=== PATIENT | male | born 1980 | race African-American/Black ===

== ENCOUNTER 2020-09-26 10:04 | Emergency (ER) | payer OTHER, BC ==
[~2020-09-26] VITALS: Ht 185.4 cm; Wt 104.9 kg
[~2020-09-26 10:04] MED LIST: CEPHALEXIN500 MG PO; IBUPROFEN800 MG PO; NORCO 5-325 TA1 EACH PO
[2020-09-26] MEDS ORDERED: HYDROCODON-ACE1 EA10 PO (11:06)
[2020-09-26] MEDS ORDERED: CEPHALEXIN500 M1 PO (11:06)
== END 2020-09-26 11:35 | disposition home or self-care (01) ==
LOC: ED 10:04
DX: S62.511B Displaced fracture of proximal phalanx of right thumb, initial encounter for open fracture (principal); W22.8XXA Striking against or struck by other objects, initial encounter
CPT/HCPCS: 73130; 99283-25

== ENCOUNTER 2020-10-06 11:50 | Day surgery (SDC) | payer OTHER, BC ==
[~2020-10-06] VITALS: Ht 185.4 cm; Wt 105.0 kg
--- NOTE | ~2020-10-06 | OR ---
[facility] [address] [place], [place] [address] Draft DATE OF OPERATION: 10/06/2020 SURGEON: Je Coon MD PREOPERATIVE DIAGNOSIS: P1 fracture, right thumb. POSTOPERATIVE DIAGNOSES: P1 fracture, right thumb, closed reduction, percutaneous pinning of right thumb. BODY WORK AUTO TRIMMER: Louisa Jones PA-C. ANESTHESIA: MAC. BLOOD LOSS: None. IMPLANTS: Two 1.25 K-wires. BRIEF HISTORY: Logan is a 40-year-old gentleman who injured his thumb at work. He fractured when he got caught between two metal racks. It was displaced, angulated. Risks and benefits of operative treatment were discussed with him and he elected to proceed. DESCRIPTION OF PROCEDURE: Once consent was obtained, he was taken to the operating room. After adequate anesthesia he was placed on the bed. The arm was prepped and draped in a standard sterile fashion. Closed reduction was attempted, however, we were unable to do that. We then percutaneously introduced a K-wire and using this as a shoe horn. We were able to get the distal portion of the proximal phalanx aligned. Two 1.25 mm K-wires were then passed from distal to proximal engaging the body of the phalanx. It was quite stable. Radiograph showed anatomic reduction. Two K-wires were then fixed with Jurgan balls and cut off. The wound was then dressed with sterile gauze, sterile cast padding, and a thumb spica splint. He tolerated the procedure well. All sponge, needle, and instrument counts were correct. PATIENT NAME: CRYSTAL TINOCO OPERATIVE REPORT DATE OF : 76 REPORT #: [id number] PHYSICIAN: JE COON MD PCP: NO PRIMARY CARE PHYSICIAN REPORT IS CONFIDENTIAL AND NOT TO BE RELEASED WITHOUT AUTHORIZATION [address] [address] Draft Je Coon MD BA/DONNIE /[id number] Copies: ~ PATIENT NAME: CRYSTAL TINOCO OPERATIVE REPORT DATE OF : 76 REPORT #: [id number] PHYSICIAN: JE COON MD PCP: NO PRIMARY CARE PHYSICIAN REPORT IS CONFIDENTIAL AND NOT TO BE RELEASED WITHOUT AUTHORIZATION
[~2020-10-06 11:50] MED LIST changes: +CEPHALEXIN500 M1 PO; +HYDROCODON-ACE1 EA10 PO
[2020-10-06] MEDS ORDERED: MULTI-VITAMIN1 EACH PO (12:13)
[2020-10-06] MEDS ORDERED: HYDROCODON-ACE1 EA10 PO (14:25)
--- NOTE | 2020-10-06 15:18 | NUR ---
10/06/20 1518 Megan Baird 1418 PT ARRIVED IN PACU SLEEPY WITH NO C/O'S. RIGHT ARM ELEVATED ON PILLOWS. 1445 PT AWAKE WANTING TO GO HOME. SITTING AT BEDSIDE GETTING DRESSED. 1450 UP TO BR WITH ONE PERSON ASSIST. VOIDED. BACK AT BEDSIDE GETTING DC INSTRUCTIONS. ALL QUESTIONS ANSWERED. LEFT VIA W/C WITH ARM IN SLING AT 1500.
== END 2020-10-06 15:00 | disposition home or self-care (01) ==
LOC: DS 11:50 → OPS 11:50 → DS 14:30 → OPS 15:00
PROVIDERS: ATTEND Specialist
PROC: 0PSR34Z Reposition Right Thumb Phalanx with Internal Fixation Device, Percutaneous Approach (ICD-10-PCS; principal; 2020-10-06 14:30)
DX: S62.511A Displaced fracture of proximal phalanx of right thumb, initial encounter for closed fracture (principal); W23.0XXA Caught, crushed, jammed, or pinched between moving objects, initial encounter; Y92.69 Other specified industrial and construction area as the place of occurrence of the external cause
CPT/HCPCS: 73140; J0690; J1885; J2001; J2250; J2405; J2704; J2795; J3010; J7121